=== PATIENT | male | born 1965 | race Caucasian/White ===

== ENCOUNTER 2017-03-19 12:34 | Emergency (ER) | payer SELFPAY ==
[~2017-03-19 12:34] MED LIST: CYCL-36 PO; LORT5TAB PO; PRED20 PO; Z.0.NO CURRENT MEDS
[2017-03-19 12:36] VITALS: BP 149/102; PULSE 114; RESP 20; TEMP 98.7; O2SAT 100
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
[2017-03-19 14:04] LABS: AUTOMATED NEUTROPHIL # 11.1 TH/MM3 (1.8-7.7); BASOPHIL # 0.1 TH/MM3 (0-0.2); BASOPHIL % 0.6 % (0.0-2.0); EOSINOPHIL % 0.2 % (0.0-4.0); HEMO FLAGS DIFF FINAL; LYMPH % 10.2 % (9.0-44.0); LYMPHOCYTE # 1.3 TH/MM3 (1.0-4.8); MEAN CELL VOLUME 92.3 FL (80.0-100.0); MEAN CORPUSCULAR HEMOGLOBIN 30.9 PG (27.0-34.0); MEAN CORPUSCULAR HGB CONC 33.5 % (32.0-36.0); MONO % 4.9 % (0.0-8.0); NEUT % 84.1 % (16.0-70.0); PLATELET COUNT 354 TH/MM3 (150-450); RED CELL DISTRIBUTION WIDTH 13.8 % (11.6-17.2); WHITE BLOOD COUNT 13.2 TH/MM3 (4.0-11.0)
[2017-03-19 14:20] LABS: ANION GAP 7 MEQ/L (5-15); AST (GOT) 14 U/L (15-37); BICARBONATE 25.1 MEQ/L (21.0-32.0); BLOOD UREA NITROGEN 15 MG/DL (7-18); CHLORIDE 106 MEQ/L (98-107); GLOMERULAR FILTRATION RATE 83 ML/MIN (>89); SODIUM (NA) 138 MEQ/L (136-145)
[2017-03-19 14:22] LABS: ALT (GPT) 30 U/L (12-78)
[2017-03-19 14:24] LABS: ALKALINE PHOSPHATASE 65 U/L (45-117); TOTAL BILIRUBIN ADULT 0.5 MG/DL (0.2-1.0)
[2017-03-19 15:54] VITALS: BP 143/88; PULSE 76; RESP 20
[2017-03-19 18:21] VITALS: BP 123/79; PULSE 63; RESP 16; O2SAT 98
[2017-03-19 23:00] VITALS: BP 132/79; PULSE 59; RESP 18; O2SAT 98
[2017-03-20 09:58] VITALS: BP 125/76; PULSE 55; RESP 16; O2SAT 98
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
--- NOTE | 2017-03-20 14:26 | PD ---
Physical Exam Time Seen by Provider: 14:10 Data Data Last Documented VS Vital Signs Date Time Temp Pulse Resp B/P (MAP) Pulse Ox O2 Delivery O2 Flow Rate FiO2 03/20/17 09:58 55 16 125/76 (92) 98 Room Air 03/19/17 12:36 98.7 Orders Orders Complete Blood Count With Diff (03/19/17 13:34) Comprehensive Metabolic Panel (03/19/17 13:34) Psych Screen (03/19/17 13:34) Drug Screen, Random Urine (03/19/17 13:34) Diet Regular Basic (03/20/17 Breakfast) Diet Regular Basic (03/20/17 Lunch) Labs Laboratory Tests Test 03/19/17 13:45 White Blood Count 13.2 TH/MM3 Red Blood Count 5.20 MIL/MM3 Hemoglobin 16.1 GM/DL Hematocrit 48.0 % Mean Corpuscular Volume 92.3 FL Mean Corpuscular Hemoglobin 30.9 PG Mean Corpuscular Hemoglobin Concent 33.5 % Red Cell Distribution Width 13.8 % Platelet Count 354 TH/MM3 Mean Platelet Volume 8.6 FL Neutrophils (%) (Auto) 84.1 % Lymphocytes (%) (Auto) 10.2 % Monocytes (%) (Auto) 4.9 % Eosinophils (%) (Auto) 0.2 % Basophils (%) (Auto) 0.6 % Neutrophils # (Auto) 11.1 TH/MM3 Lymphocytes # (Auto) 1.3 TH/MM3 Monocytes # (Auto) 0.7 TH/MM3 Eosinophils # (Auto) 0.0 TH/MM3 Basophils # (Auto) 0.1 TH/MM3 CBC Comment DIFF FINAL Differential Comment Blood Urea Nitrogen 15 MG/DL Creatinine 0.96 MG/DL Random Glucose 112 MG/DL Total Protein 8.2 GM/DL Albumin 4.2 GM/DL Calcium Level 9.3 MG/DL Alkaline Phosphatase 65 U/L Aspartate Amino Transf (AST/SGOT) 14 U/L Alanine Aminotransferase (ALT/SGPT) 30 U/L Total Bilirubin 0.5 MG/DL Sodium Level 138 MEQ/L Potassium Level 4.0 MEQ/L Chloride Level 106 MEQ/L Carbon Dioxide Level 25.1 MEQ/L Anion Gap 7 MEQ/L Estimat Glomerular Filtration Rate 83 ML/MIN Urine Opiates Screen NEG Urine Barbiturates Screen NEG Urine Amphetamines Screen NEG Urine Benzodiazepines Screen NEG Urine Cocaine Screen NEG Urine Cannabinoids Screen POS [facility] Medical Record Reviewed: Yes Supervised Visit with JERMAINE: No Narrative Course This patient was initially seen by Dr. Rosario yesterday and had a Elena act placed. He was seen today by psychiatrist Dr. Kincaid who has lived to the [facility] act and feels that he is psychiatrically stable to go home. Please see his note. Briefly the patient was feeling depressed and suicidal yesterday after having an argument with his . Specifically he was having thoughts of hanging himself but he initially came here voluntarily. At this time the patient is denying any suicidal or homicidal ideation and has a desire to live. He does feel depressed and would like to follow-up with a psychiatrist as an outpatient. The nurse will give him a list of resources in regards to outpatient follow-up purposes. He understands that he can come back here at any time if he feels unsafe at home. Diagnosis Primary Impression: Adjustment disorder with mixed disturbance of emotions and conduct Med/Other Pt SpecificInfo: No Change to Meds Disposition: 01 DISCHARGE HOME Condition: Stable Jay Witt Mar 20, 2017 14:26
[2017-03-20 15:10] VITALS: BP 125/76
== END 2017-03-20 15:11 | disposition home or self-care (01) ==
LOC: NEPD 12:34 → NEPJ 03-20 15:11
DX: F43.25 Adjustment disorder with mixed disturbance of emotions and conduct (principal)
CPT/HCPCS: 80053; 80307; 85025; 99284